=== PATIENT | female | born 1960 ===

== ENCOUNTER 2025-02-05 08:00 | Day surgery (SDC) | payer OTHER ==
[2025-01-29 08:44] LABS: BASO % 0.5 % (0.1-1.2); EOS # 0.07 (0.04-0.54); EOS % 1.7 % (0.7-7.0); LYMPH # 1.02 (1.18-3.74); LYMPH % 25.3 % (19.3-53.1); MEAN PLATELET VOLUME 9.50 fl (9.4-12.4); MONO # 0.43 (0.24-0.82); MONO % 10.7 % (4.7-12.5); NEUT # 2.47 (1.56-6.13); NEUT % 61.3 % (34.0-71.1); RED CELL DISTRIBUTION WIDTH 13.5 % (11.6-14.4)
[2025-01-29 08:55] VITALS: BP 133/85
[2025-01-29 09:06] LABS: URINE APPEARANCE Clear; URINE BILIRRUBIN Negative (NEGATIVE); URINE BLOOD Negative; URINE COLOR Yellow; URINE GLUCOSE Negative (NEGATIVE); URINE KETONE Negative (NEGATIVE); URINE LEUKOCYTE Trace; URINE NITRATE Negative; URINE PROTEIN Negative (NEGATIVE); URINE UROBILINOGEN 0.2 E.U./dl
[2025-01-29 09:11] LABS: URINE BACTERIA 10.7 uL (0.0-1933); URINE EPITHELIAL CELLS 7.9 uL (0.0-38.8); URINE RBC 3.3 uL (0.0-20.8); URINE WBC 42.7 uL (0.0-23.2)
[2025-01-29 09:15] LABS: URINE CAST 0.29 uL (0.0-1.40)
[2025-01-29 09:24] LABS: INR < 0.93
[2025-01-29 09:30] LABS: ALT/SGPT 22.0 U/L (12-78); AST/SGOT 17.0 U/L (15-37); BILIRUBIN TOTAL 0.26 mg/dL (0.3-1.2); BUN CREA RATIO 21.0 (7.0-25.0); CREATININE SERUM 0.73 mg/dL (0.55-1.02); GFR 80.78; GLOBULINA 3.3 G/DL (2.4-3.5); GLUCOSE FASTING 95.0 mg/dL (65-100); OSMOLALITY SERUM 287.0 MOSM/KG (275-295)
[~2025-02-05] VITALS: Ht 149.9 cm; Wt 54.4 kg
[~2025-02-05 08:00] MED LIST: ALPRAZOLAM OD0.25 MG PO; CITALOPRAM HBR20 MG PO; COZAAR50 MG PO; HORIZANT300 MG PO; NEXIUM 24HR20 M1 PO; PEPCID AC20 MG PO; RESTORIL30 MG PO; TRAZODONE HCL150 MG PO; WIXELA 250-501 EACH IH
[2025-02-05] MEDS ORDERED: CEFAZOLIN SODIUM 1,000 MG VIAL ONE (08:35)
[2025-02-05] MEDS ORDERED: DEXAMETHASONE SODIUM PHOSPHATE 4 MG/ML VIAL ONE (11:10)
[2025-02-05] MEDS ORDERED: SUGAMMADEX SODIUM 200 MG/2 ML VIAL IV ONE (11:10)
== END 2025-02-05 14:50 | disposition home or self-care (01) ==
LOC: CIR.AMB 08:00
PROVIDERS: ATTEND Surgery
DX: K81.1 Chronic cholecystitis (principal)